=== PATIENT | female | born 1960 | race Hispanic/Latino ===

== ENCOUNTER 2024-09-16 13:12 | Outpatient (CLI) | payer MEDICAID, MEDICARE, OTHER | END 2024-09-16 13:13 | disposition home or self-care (01) | LOC: CSHULT 13:12 | PROVIDERS: ATTEND Family Medicine | DX: M79.89 Other specified soft tissue disorders (principal); M79.604 Pain in right leg; M79.605 Pain in left leg | CPT/HCPCS: 93970 ==